=== PATIENT | male | born 1960 | race African-American/Black ===

== ENCOUNTER → 2019-02-16 | Outpatient (CLI) | payer OTHER ==
--- NOTE | 2019-02-16 10:30 | RADIOLOGY REPORT (SQ) ---
EXAM DESCRIPTION: CHEST PA/LATERAL COMPLETED DATE/TIME: 02/16/2019 10:18 am REASON FOR STUDY: PRE-OP COMPARISON: None. EXAM PARAMETERS: NUMBER OF VIEWS: two views TECHNIQUE: Digital Frontal and Lateral radiographic views of the chest acquired. RADIATION DOSE: NA LIMITATIONS: none FINDINGS: LUNGS AND PLEURA: No opacities, masses or pneumothorax. No pleural effusion. MEDIASTINUM AND HILAR STRUCTURES: No masses or contour abnormalities. HEART AND VASCULAR STRUCTURES: Heart normal size. No evidence for failure. BONES: No acute findings. HARDWARE: None in the chest. OTHER: No other significant finding. IMPRESSION: NO SIGNIFICANT RADIOGRAPHIC FINDING IN THE CHEST. TECHNICAL DOCUMENTATION: JOB ID: [id number] [employer]- All Rights Reserved Reading location - IP/workstation name: [email or web address]
[2019-02-16 10:45] LABS: ABSOLUTE EOSINOPHILS # (AUTO) 0.1 10^3/uL (0.0-0.6); ABSOLUTE MONOCYTES (AUTO) 0.3 10^3/uL (0.1-1.4); ABSOLUTE NEUT (AUTO) 1.5 10^3/uL (1.7-8.2); BASOPHILS % (AUTO) 1.1 % (0-2); EOSINOPHILS % (AUTO) 3.6 % (0-6); HEMATOCRIT 41.5 % (37.9-51.0); HEMOGLOBIN 13.7 g/dL (13.5-17.0); LYMPHOCYTES % (AUTO) 50.4 % (13-45); MEAN CORPUSCULAR HEMOGLOBIN 29.6 pg (27.0-33.4); MEAN CORPUSCULAR HGB CONC 32.9 g/dL (32.0-36.0); MEAN CORPUSCULAR VOLUME 90 fl (80-97); MONOCYTES % (AUTO) 7.1 % (3-13); PLATELET COUNT 199 10^3/uL (150-450); RED BLOOD COUNT 4.62 10^6/uL (4.35-5.55); RED CELL DISTRIBUTION WIDTH 13.9 % (11.5-14.0); SEGMENTED NEUTROPHILS % (AUTO) 37.8 % (42-78); TOTAL CELLS COUNTED % (AUTO) 100 %; WHITE BLOOD COUNT 4.1 10^3/uL (4.0-10.5)
[2019-02-16 10:53] LABS: APPEARANCE,URINE CLEAR; BILIRUBIN,URINE NEGATIVE (NEGATIVE); COLOR,URINE STRAW; GLUCOSE, URINE NEGATIVE (NEGATIVE); KETONES,URINE NEGATIVE (NEGATIVE); LEUKOCYTE ESTERASE,URINE NEGATIVE (NEGATIVE); NITRITE,URINE NEGATIVE (NEGATIVE); PROTEIN,URINE NEGATIVE (NEGATIVE); URINE SPECIFIC GRAVITY 1.004; UROBILINOGEN,URINE NEGATIVE mg/dL (<2.0)
[2019-02-16 11:12] LABS: ANION GAP 7 (5-19); BLOOD UREA NITROGEN 11 mg/dL (7-20); CALCIUM 9.6 mg/dL (8.4-10.2); CARBON DIOXIDE 30 mmol/L (22-30); CHLORIDE 102 mmol/L (98-107); GLUCOSE 69 mg/dL (75-110)
--- NOTE | 2019-02-16 21:02 | EKG REPORT ---
SEVERITY:- BORDERLINE ECG - SINUS RHYTHM BORDERLINE T ABNORMALITIES, DIFFUSE LEADS : Confirmed by: Janny Dodge MD 16-Feb-2019 21:01:42
== END ==
LOC: OD 09:57
PROVIDERS: ATTEND Orthopaedic Surgery
DX: Z01.810 Encounter for preprocedural cardiovascular examination (principal); Z01.811 Encounter for preprocedural respiratory examination; Z01.812 Encounter for preprocedural laboratory examination; M17.12 Unilateral primary osteoarthritis, left knee; I10 Essential (primary) hypertension
CPT/HCPCS: 36415; 71046; 80048; 81001; 85025; 93005; 93010

== ENCOUNTER 2019-03-17 05:27 | Inpatient (IN) | payer OTHER ==
[~2019-03-17 05:27] MED LIST: BUPIVACAINE INJ/PF LIPOSOME/PF 266 MG/20 ML SDV INJ PRN; CEFAZOLIN INJ 1 GM VIAL IV PRN; CEFAZOLIN INJ 1 GM VIAL ONE; IBUPROFEN 800 MG in NORMAL SALINE 250 ML IV PRN; LACTATED RINGERS 1000 ML IV PRN; OXYCODONE HCL SR 10 MG TABLET PO ONE; OXYCODONE HCL SR 10 MG TABLET PO PRN; PANTOPRAZOLE SODIUM 20 MG TABLET.DR PO ONE; PANTOPRAZOLE SODIUM 20 MG TABLET.DR PO PRN; VANCOMYCIN HCL 1,000 MG in DEXTROSE 5%-WATER 250 ML IV PRN
[2019-03-17] MEDS ORDERED: MIDAZOLAM 2 MG/2 ML INJ ONE (06:42)
[2019-03-17] MEDS ORDERED: PROPOFOL INJ 200 MG/20 ML VIAL IV ONE (06:42)
[2019-03-17] MEDS ORDERED: FENTANYL CITRATE INJ/PF 100 MCG/2 ML AMPUL ONE (06:42)
[2019-03-17] MEDS ORDERED: HYDROMORPHONE HCL INJ/PF 2 MG/ML AMPULE ONE (06:42)
[2019-03-17] MEDS ORDERED: TRANEXAMIC ACID INJ/PF 1,000 MG/10 ML SDV ONE ×2 (06:43→09:35)
[2019-03-17] MEDS ORDERED: BUPIVACAINE HCL 0.5%-EPI 1:200000 INJ/PF 30 ML VIAL ONE (07:21)
[2019-03-17] MEDS ORDERED: FENTANYL CITRATE INJ/PF 100 MCG/2 ML AMPUL IV PRN ×3 (08:08)
[2019-03-17] MEDS ORDERED: PROMETHAZINE HCL INJ 25 MG/1 ML VIAL IV PRN ×2 (08:08)
[2019-03-17] MEDS ORDERED: DIPHENHYDRAMINE HCL 50 MG/ML VIAL IV PRN ×2 (08:08→08:34)
[2019-03-17] MEDS ORDERED: ACETAMINOPHEN 325 MG TABLET PO PRN (08:34)
[2019-03-17] MEDS ORDERED: ZOLPIDEM TARTRATE 5 MG TABLET PO PRN (08:34)
[2019-03-17] MEDS ORDERED: RINGERS SOLUTION,LACTATED 1,000 ML IV PRN (08:34)
[2019-03-17] MEDS ORDERED: MAG HYDROX/AL HYDROX/SIMETH SUSP 30 ML UDCUP PO PRN (08:34)
[2019-03-17] MEDS ORDERED: ONDANSETRON HCL INJ/PF 4 MG/2 ML SDV IV PRN (08:34)
[2019-03-17] MEDS ORDERED: ONDANSETRON 4 MG TAB.RAPDIS PO PRN (08:34)
--- NOTE | 2019-03-17 08:34 | Operative Report ---
Operative Report DATE OF SURGERY: 03/17/19 PREOPERATIVE DIAGNOSIS: Left knee arthritis OPERATION: Left knee arthroplasty SURGEON: CASPER CHERRY ANESTHESIA: Spinal TISSUE REMOVED OR ALTERED: Bone to pathology ESTIMATED BLOOD LOSS: 75 PROCEDURE: Implants used: Femur: Pastor triathlon size 7 CR uncemented femur Tibia: 7 uncemented tibia Tibial liner: 9 mm CS insert Patella: 38 mm oval patella Procedure with the patient supine on the operating table the left the limb is prepped and draped in a sterile fashion. The limb was elevated for exsanguination and the tourniquet inflated to 280 torr. A standard midline median parapatellar approach the knee is taken. Access is gained to the femoral canal through the intercondylar notch. Intramedullary alignment instrumentation used to resect 10 mm of distal femur in 5 of valgus. Sizing guide indicated a size 7 femur. Appropriate cutting jig is then used to fashion anterior posterior and chamfer cuts. A trial reduction femurs performed and this is judged to be adequate. Attention was next turned to the tibia. Using an extra medullary alignment system 9 millimeters was resected off the lateral tibial plateau. This is sized to a size been tibia. A trial reduction was now performed with a 7 femur and a 7 tibia using a 9 millimeters spacer. It is full extension and central patellofemoral tracking. The articular surface the patella was next resected using an oscillating saw. All trial implants were removed. The above implants are impacted into place. The tourniquet was deflated hemostasis obtained the wound is then closed in layers using interrupted Vicryl followed by dao. A sterile compressive dressing was applied and the patient returned to recovery room in satisfactory condition.
--- NOTE | 2019-03-17 09:18 | RADIOLOGY REPORT (SQ) ---
EXAM DESCRIPTION: KNEE LEFT 2 VIEWS COMPLETED DATE/TIME: 03/17/2019 9:08 am REASON FOR STUDY: Post OP -Long Cassette in PACU M17.12 UNILATERAL PRIMARY OSTEOARTHRITIS, LEFT KNE E COMPARISON: None. NUMBER OF VIEWS: Two view(s). TECHNIQUE: Digital radiographic images of the left knee post-procedure. LIMITATIONS: None. FINDINGS: BONES: No worrisome or unexpected findings post-procedure. DEVICE: Total knee arthroplasty. SOFT TISSUES: No worrisome findings. Expected postoperative soft tissue changes. IMPRESSION: SATISFACTORY POSTOPERATIVE LEFT KNEE. TECHNICAL DOCUMENTATION: JOB ID: [id number] [employer]- All Rights Reserved Reading location - IP/workstation name: [email or web address]
[2019-03-17] MEDS ORDERED: (PENDING PHARMACY ID) (Cholecalciferol (Vitamin D3) [Vitamin D3] 2,000 UNIT) PO SCH (10:00)
[2019-03-17] MEDS ORDERED: TRANEXAMIC ACID INJ/PF 1,000 MG/10 ML SDV IV ONE (10:00)
[2019-03-17] MEDS ORDERED: DEXAMETHASONE SOD PHOSPHATE INJ 4 MG/1 ML VIAL ONE (10:00)
[2019-03-17] MEDS ORDERED: (PENDING PHARMACY ID) (Atenolol [Tenormin] 25 MG) PO SCH (10:00)
[2019-03-17] MEDS ORDERED: ONDANSETRON HCL INJ/PF 4 MG/2 ML SDV ONE (10:00)
[2019-03-17] MEDS ORDERED: (PENDING PHARMACY ID) (Prazosin Hcl [Prazosin Hcl] 2 MG) PO SCH (10:00)
[2019-03-17] MEDS: ASPIRIN 81 MG TABLET, ENT COATED PO SCH (14:52)
[2019-03-17] MEDS: BACLOFEN 10 MG TABLET PO SCH ×3 (14:52→18:25)
[2019-03-17] MEDS: HALOPERIDOL 2 MG TABLET PO SCH ×2 (14:52→18:26)
[2019-03-17] MEDS: ATORVASTATIN CALCIUM 40 MG TABLET PO SCH (14:53)
[2019-03-17] MEDS: SENNOSIDES/DOCUSATE 8.6-50 MG 1 EACH TABLET PO SCH ×2 (14:53→18:26)
[2019-03-17] MEDS: PRENATAL VITAMIN W DHA CAPSULE PO SCH (14:53)
[2019-03-17] MEDS: OXYCODONE HCL SR 10 MG TABLET PO SCH ×2 (14:53→21:03)
[2019-03-17] MEDS: BUPROPION HCL 100 MG TABLET PO SCH ×2 (14:54→18:25)
[2019-03-17] MEDS: ALLOPURINOL 300 MG TABLET PO SCH (14:54)
[2019-03-17] MEDS: BENZONATATE 100 MG CAPSULE PO SCH (14:54)
[2019-03-17] MEDS: OXYCODONE HCL IR 5 MG TABLET PO PRN ×2 (15:03→23:06)
[2019-03-17] MEDS: IBUPROFEN 800 MG in NORMAL SALINE 250 ML IV SCH ×2 (15:04→23:06)
[2019-03-17] MEDS ORDERED: INFLUENZA QUAD (6MOS+) 2019-20 VAC 0.5 ML SYR IM ONE (17:45)
[2019-03-17] MEDS ORDERED: TRAZODONE HCL 50 MG TABLET PO SCH (18:00)
[2019-03-17] MEDS ORDERED: VANCOMYCIN HCL 1,000 MG in DEXTROSE 5%-WATER 250 ML IV ONE (20:30)
[2019-03-17] MEDS: TRAZODONE HCL 50 MG TABLET PO SCH (21:03)
[2019-03-18] MEDS: IBUPROFEN 800 MG in NORMAL SALINE 250 ML IV SCH ×2 (05:18→13:36)
[2019-03-18 05:38] LABS: HEMATOCRIT 35.2 % (37.9-51.0); MEAN CORPUSCULAR HEMOGLOBIN 30.6 pg (27.0-33.4); MEAN CORPUSCULAR HGB CONC 34.2 g/dL (32.0-36.0); MEAN CORPUSCULAR VOLUME 90 fl (80-97); PLATELET COUNT 179 10^3/uL (150-450); RED BLOOD COUNT 3.93 10^6/uL (4.35-5.55); RED CELL DISTRIBUTION WIDTH 13.6 % (11.5-14.0); WHITE BLOOD COUNT 7.3 10^3/uL (4.0-10.5)
[2019-03-18 05:53] LABS: ANION GAP 6 (5-19); BLOOD UREA NITROGEN 8 mg/dL (7-20); CARBON DIOXIDE 31 mmol/L (22-30); CHLORIDE 99 mmol/L (98-107); GLUCOSE 129 mg/dL (75-110); POTASSIUM 4.5 mmol/L (3.6-5.0)
[2019-03-18] MEDS ORDERED: PANTOPRAZOLE SODIUM 40 MG TABLET.DR PO SCH (06:00)
--- NOTE | 2019-03-18 06:56 | PDOC DISCHARGE SUMMARY ---
Impression - Admit/DC Date/PCP Admission Date/Primary Care Provider: 03/17/19 05:[facility] Discharge Date: 03/18/19 - Additional Information Resuscitation Status: Full Code Discharge Diet: Regular Discharge Activity: Balance Activity w/Rest, No tub bath Referrals: CASPER CHERRY MD [ACTIVE STAFF] - 03/30/19 9:45 am Home Medications: Allopurinol [Zyloprim 300 mg Tablet] 300 mg PO DAILY 03/01/19 Atenolol [Tenormin] 25 mg PO DAILY 03/01/19 Atorvastatin Calcium [Lipitor 40 mg Tablet] 20 mg PO DAILY 03/01/19 Baclofen [Baclofen 10 mg Tablet] 10 mg PO TID 03/01/19 Benzonatate [Tessalon Perles 100 mg Capsule] 100 mg PO DAILY 03/01/19 Cholecalciferol (Vitamin D3) [Vitamin D3] 2,000 unit PO DAILY 03/01/19 Haloperidol [Haldol 2 mg Tablet] 2 mg PO BID 03/01/19 Prazosin HCl 2 mg PO QHS 03/01/19 Bupropion HCl [Wellbutrin Sr 100 mg Tablet] 1 tab PO Q12 03/17/19 Trazodone HCl [Desyrel 50 mg Tablet] 25 mg PO HSP PRN 03/17/19 History of Present Illiness History of Present Illness: NABILA GATES is a 58 year old male Patient is a 58-year-old black male with progressive left knee pain and functional disability second osteoarthritis. Patient admitted for elective left knee arthroplasty. Hospital Course Hospital Course: Patient is admitted through the operating where he undergoes an uncomplicated left knee arthroplasty. Is returned to floor in satisfactory condition. He makes excellent progress with physical therapy and weightbearing as tolerated basis. His compressive dressing was removed on postop day 1. Underlying OpSite dressings clean dry and intact. Physical Exam Vital Signs: Temp Pulse Resp BP Pulse Ox 36.4 C 105 H 18 118/96 H 100 03/17/19 23:09 03/17/19 23:09 03/17/19 19:37 03/17/19 23:09 03/18/19 03:56 Intake & Output 03/16/19 03/17/19 03/18/19 06:59 06:59 06:59 Intake Total 0 6944 Output Total 3081 Balance 0 3863 Weight 89.5 kg General appearance: PRESENT: no acute distress Head exam: PRESENT: normocephalic Respiratory exam: PRESENT: unlabored Cardiovascular exam: PRESENT: RRR Pulses: PRESENT: +1 pedal pulses bilateral Vascular exam: PRESENT: normal capillary refill GI/Abdominal exam: PRESENT: soft Rectal exam: PRESENT: deferred Musculoskeletal exam: PRESENT: other - Compressive drip dressing was removed on postop day 1. Underlying OpSite dressings clean dry and intact. There is minimal pedal edema. Distal neurovascular examination is intact. Neurological exam: PRESENT: alert, awake, oriented to person, oriented to place, oriented to time, oriented to situation. ABSENT: motor sensory deficit Psychiatric exam: PRESENT: appropriate affect, normal mood. ABSENT: homicidal ideation, suicidal ideation Skin exam: PRESENT: dry, intact, warm. ABSENT: cyanosis, rash Results Laboratory Results: WBC 7.3 10^3/uL (4.0-10.5) 03/18/19 05:21 RBC 3.93 10^6/uL (4.35-5.55) L 03/18/19 05:21 Hgb 12.0 g/dL (13.5-17.0) L 03/18/19 05:21 Hct 35.2 % (37.9-51.0) L 03/18/19 05:21 MCV 90 fl (80-97) 03/18/19 05:21 MCH 30.6 pg (27.0-33.4) 03/18/19 05:21 MCHC 34.2 g/dL (32.0-36.0) 03/18/19 05:21 RDW 13.6 % (11.5-14.0) 03/18/19 05:21 Plt Count 179 10^3/uL (150-450) 03/18/19 05:21 Sodium 135.5 mmol/L (137-145) L 03/18/19 05:21 Potassium 4.5 mmol/L (3.6-5.0) 03/18/19 05:21 Chloride 99 mmol/L (98-107) 03/18/19 05:21 Carbon Dioxide 31 mmol/L (22-30) H 03/18/19 05:21 Anion Gap 6 (5-19) 03/18/19 05:21 BUN 8 mg/dL (7-20) 03/18/19 05:21 Creatinine 0.99 mg/dL (0.52-1.25) 03/18/19 05:21 Est GFR ( Amer) > 60 (>60) 03/18/19 05:21 Est GFR (MDRD) Non-Af > 60 (>60) 03/18/19 05:21 Glucose 129 mg/dL (75-110) H 03/18/19 05:21 Calcium 9.0 mg/dL (8.4-10.2) 03/18/19 05:21 Impressions: Knee X-Ray 03/17/19 08:36 IMPRESSION: SATISFACTORY POSTOPERATIVE LEFT KNEE. Plan Plan of Treatment: Patient be discharged home with home health services and DME. Patient is weightbearing as tolerated on the left lower extremity. Follow-up with Dr. [facility] for surgery in 2 weeks for staple removal. Stroke Is this a Stroke Patient?: No Stroke Pt being discharged on Anti-thrombolytic therapy?: Yes Acute Heart Failure - Is this a Heart Failure Patient?: No
[2019-03-18] MEDS: OXYCODONE HCL IR 5 MG TABLET PO PRN (07:42)
[2019-03-18] MEDS: OXYCODONE HCL SR 10 MG TABLET PO SCH (09:53)
[2019-03-18] MEDS: ATORVASTATIN CALCIUM 40 MG TABLET PO SCH (09:53)
[2019-03-18] MEDS: ASPIRIN 81 MG TABLET, ENT COATED PO SCH (09:53)
[2019-03-18] MEDS: PRENATAL VITAMIN W DHA CAPSULE PO SCH (09:53)
[2019-03-18] MEDS: BENZONATATE 100 MG CAPSULE PO SCH (09:54)
[2019-03-18] MEDS: SENNOSIDES/DOCUSATE 8.6-50 MG 1 EACH TABLET PO SCH (09:54)
[2019-03-18] MEDS: TRAZODONE HCL 50 MG TABLET PO SCH (09:55)
[2019-03-18] MEDS: HALOPERIDOL 2 MG TABLET PO SCH (09:56)
[2019-03-18] MEDS ORDERED: CHOLECALCIFEROL (D3) 1,000 UNIT (25 MCG) TABLET PO SCH (10:00)
[2019-03-18] MEDS ORDERED: ATENOLOL 50 MG TABLET PO SCH (10:00)
[2019-03-18] MEDS ORDERED: DOXAZOSIN MESYLATE 2 MG TABLET PO SCH (10:00)
[2019-03-18] MEDS: BACLOFEN 10 MG TABLET PO SCH ×2 (10:02→13:33)
[2019-03-18] MEDS: ALLOPURINOL 300 MG TABLET PO SCH (10:02)
[2019-03-18] MEDS: BUPROPION HCL 100 MG TABLET PO SCH (10:10)
[2019-03-18 14:05] VITALS: BP 134/91
== END 2019-03-18 15:07 | disposition home health service (06) | DRG 470 ==
LOC: INOR 05:27 → 4S 11:19
PROVIDERS: ADMIT Orthopaedic Surgery; ATTEND Orthopaedic Surgery
PROC: 0SRD0JA Replacement of Left Knee Joint with Synthetic Substitute, Uncemented, Open Approach (ICD-10-PCS; principal; 2019-03-17 07:30)
DX: M17.12 Unilateral primary osteoarthritis, left knee (principal); F41.9 Anxiety disorder, unspecified; F32.9 Major depressive disorder, single episode, unspecified; I10 Essential (primary) hypertension; G47.30 Sleep apnea, unspecified; M10.9 Gout, unspecified; E78.00 Pure hypercholesterolemia, unspecified; Z79.899 Other long term (current) drug therapy
CPT/HCPCS: 36415; 80048; 85027; 88305; 88311; 90686; 94799; C1713; C1776; J0690; J1100; J1170; J1741; J2250; J2405; J2704; J3010; J3370; J3490; J7050; J7060